=== PATIENT | male | born 2005 | race Two or more races ===

== ENCOUNTER 2024-12-06 16:20 | Emergency (ER) | payer MEDICAID, OTHER ==
[~2024-12-06] VITALS: Ht 185.4 cm; Wt 73.6 kg
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
[2024-12-06 17:00] VITALS: TEMP 98.2
[2024-12-06 17:35] LABS: Hematocrit 46.3 % (41.0-53.0); Hemoglobin 16.2 g/dL (13.5-17.5); Mean Corpuscular Hemoglobin 32.1 pg (28.0-32.0); Mean Corpuscular Volume 91.7 fL (80.0-100.0); Nucleated Red Blood Cells % 0.0 %
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
[2024-12-06 17:47] LABS: Anion Gap 10 (5-15); Calcium 9.8 mg/dL (8.7-10.4); Carbon Dioxide 26 mmol/L (20-31); Chloride 104 mmol/L (98-107); Potassium 3.8 mmol/L (3.5-5.1); Sodium 140 mmol/L (136-145)
[2024-12-06 17:53] LABS: BUN/Creatinine Ratio 7.0 (10.0-20.0); Glucose 103 mg/dL (74-106)
[2024-12-06 17:54] LABS: Blood Urea Nitrogen 7 mg/dL (9-23)
[2024-12-06 18:55] VITALS: BP 111/70; PULSE 102; RESP 18; O2SAT 98
== END 2024-12-06 18:56 | disposition home or self-care (01) ==
LOC: EDBD 16:20 → ER 16:36
DX: S09.90XA Unspecified injury of head, initial encounter (principal); Z98.890 Other specified postprocedural states; V89.2XXA Person injured in unspecified motor-vehicle accident, traffic, initial encounter; Y93.89 Activity, other specified; Y92.410 Unspecified street and highway as the place of occurrence of the external cause; Y99.8 Other external cause status
CPT/HCPCS: 36415; 70450; 80048; 85025